=== PATIENT | female | born 1995 | race Caucasian/White ===

== ENCOUNTER 2019-07-27 14:56 | Emergency (ER) | payer OTHER ==
[2019-07-27 15:07] VITALS: BP 118/61; PULSE 87; TEMP 98.7; BMI 25.8
--- NOTE | 2019-07-27 15:28 | PDOC ---
History of Present Illness - General Chief Complaint: Pain Stated Complaint: PAINS / HEMORRHOIDS Time Seen by Provider: 07/27/19 15:08 History Source: Patient Exam Limitations: No Limitations (hemorroidal pain X 3 days) Past History - Travel Traveled outside of the country in the last 30 days: No Close contact w/someone who was outside of country & ill: No - Past Medical History Allergies/Adverse Reactions: Allergies Allergy/AdvReac Type Severity Reaction Status Date / Time Penicillins Allergy Verified 07/27/19 15:02 Home Medications: Ambulatory Orders Docusate Sodium [Colace -] 100 mg PO TID #21 capsule 07/27/19 Hydrocortisone 2.5% Topical Cr [Anusol 2.5% Hc Cream -] 1 applic RC BID #1 tube 07/27/19 - Psycho Social/Smoking Cessation Hx Smoking History: Never smoked Hx Alcohol Use: No Drug/Substance Use Hx: No Review of Systems - Review of Systems Constitutional: No: Chills, Fever ABD/GI: Yes: Constipated. No: Abdominal Distended, Blood Streaked Bowels, Diarrhea, Nausea, Vomiting, Abdominal cramping, Tarry Stools *Physical Exam - Vital Signs Last Vital Signs Temp Pulse Resp BP Pulse Ox 98.7 F 87 118/61 100 07/27/19 15:00 07/27/19 15:00 07/27/19 15:00 07/27/19 15:00 - Physical Exam General Appearance: Yes: Nourished HEENT: positive: EOMI Gastrointestinal/Abdominal: positive: Normal Bowel Sounds, Soft Rectal Exam: positive: hemorrhoids (external hemorroid, no bleeding, not thrombosed) Neurologic: positive: beader II-XII NML intact, Fully Oriented, Alert, Normal Mood/ Affect, Normal Response, Motor Strength 5/5 Medical Decision Making - Medical Decision Making 07/27/19 15:34 23y/o F with h/o hemorrhoids presents with straining while having a BM X 3 days she is now experiencing pain in hemorrhoids denies rectal bleeding Exam with external hemorrhoid--tender to touch pt advsied to include high fiber in her diet avoid straining Discharge - Discharge Information Problems reviewed: Yes Clinical Impression/Diagnosis: External hemorrhoid Constipation Qualifiers: Constipation type: slow transit constipation Qualified Code(s): K59.01 - Slow transit constipation Disposition: HOME - Additional Discharge Information Plan of Treatment: You have hemorrhoids please increased fluids and fiber in your diet Prescriptions: Docusate Sodium [Colace -] 100 mg PO TID #21 capsule Hydrocortisone 2.5% Topical Cr [Anusol 2.5% Hc Cream -] 1 applic RC BID #1 tube Prescription Drug Monitoring Program (I-STOP) results: I-STOP not reviewed - Follow up/Referral Referrals: Ranjeet Jack PA [Primary Care Provider] - Jonathan Cantor MD [Staff Physician] - - Patient Discharge Instructions Patient Printed Discharge Instructions: Hemorrhoids, Constipation - Post Discharge Activity
== END 2019-07-27 15:30 | disposition home or self-care (01) ==
LOC: JERFT 14:56 → JER 14:56 → JERFT 15:30
DX: K64.4 Residual hemorrhoidal skin tags (principal); K59.01 Slow transit constipation; Z88.0 Allergy status to penicillin
CPT/HCPCS: 99281-25